=== PATIENT | female | born 1975 | race Caucasian/White ===

== ENCOUNTER 2016-08-20 09:08 | Emergency (ER) | payer BC | END 2016-08-20 10:20 | disposition home or self-care (01) | LOC: ER1 09:08 | DX: R21 Rash and other nonspecific skin eruption (principal); Z88.0 Allergy status to penicillin; Z88.5 Allergy status to narcotic agent | CPT/HCPCS: 96372; 99282; J1200; J2930 ==

== ENCOUNTER → 2020-10-18 | Outpatient (CLI) | payer BC ==
[~2020-10-18] MED LIST: NITROSTAT 0.40.4 MG SL
== END ==
LOC: EXRD 07:41
DX: R74.8 Abnormal levels of other serum enzymes (principal); R16.1 Splenomegaly, not elsewhere classified
CPT/HCPCS: 76700

== ENCOUNTER → 2022-02-13 | Outpatient (CLI) | payer BC | LOC: KOH-I 12:12 | DX: R51.9 Headache, unspecified (principal) | CPT/HCPCS: 70450 ==